=== PATIENT | male | born 1960 | race Caucasian/White ===

== ENCOUNTER 2016-09-15 11:27 | Day surgery (SDC) | payer BC ==
--- NOTE | ~2016-09-15 | EGD ---
EGD REPORT [facility] [address] [address] NAME: KRISTY STALLWORTH : [birth year] STATUS : REG [facility]#: [id number] AGE: 56 ADM/REG DATE : 09/15/16 MR#: [id number] REPORT SERV DATE: 09/15/16 DICTATED BY: ANDREAS MCGRAW DATE: 09/15/16 REPORT STATUS : Draft TRANSCRIBED BY: [facility] DATE: 09/15/16 [facility] Patient Name: Kristy Stallworth Date of : 1960 Attending MD: ANDREAS MCGRAW MD Procedure Date No Time: 09/15/2016 Procedure: Colonoscopy Indications: Screening in patient at increased risk: Colorectal cancer in father before age 60, Personal history of colonic polyps Referring MD: RAMYA COLE MD Medicines: Propofol per Anesthesia Complications: No immediate complications. Estimated blood loss: None. Procedure: Pre-Anesthesia Assessment: - After reviewing the risks and benefits, the patient was deemed in satisfactory condition to undergo the procedure. - Prior to the procedure, a History and Physical was performed, and patient medications and allergies were reviewed. The patient's tolerance of previous anesthesia was also reviewed. The risks and benefits of the procedure and the sedation options and risks were discussed with the patient. All questions were answered, and informed consent was obtained. Prior Anticoagulants: The patient has taken no previous anticoagulant or antiplatelet agents. ASA Grade Assessment: II - A patient with mild systemic disease. After reviewing the risks and benefits, the patient was deemed in satisfactory condition to undergo the procedure. After I obtained informed consent, the scope was passed under direct vision. Throughout the procedure, the patient's blood pressure, pulse, and oxygen saturations were monitored continuously. The CF [id number] was introduced through the anus and advanced to the terminal ileum, with identification of the appendiceal orifice and IC valve. The colonoscopy was performed without difficulty. The ileocecal valve, appendiceal orifice and terminal ileum were photographed. The patient tolerated the procedure well. The quality of the bowel preparation was adequate. The bowel preparation used was split dose polyethylene glycol (PEG). Scope withdrawal time was greater than 10 minutes. Findings: The perianal and digital rectal examinations were normal. Pertinent EGD REPORT [address] [address] NAME: KRISTY STALLWORTH : [birth year] STATUS : [facility] [place] PAT#: [id number] AGE: 56 ADM/REG DATE : 09/15/16 MR#: [id number] REPORT SERV DATE: 09/15/16 DICTATED BY: ANDREAS MCGRAW DATE: 09/15/16 REPORT STATUS : Draft TRANSCRIBED BY: [employer] DATE: 09/15/16 negatives include normal sphincter tone. The terminal ileum appeared normal. Non-bleeding internal hemorrhoids were found during retroflexion and were small and Grade I (internal hemorrhoids that do not prolapse). The exam was otherwise without abnormality. Impression: - Non-bleeding internal hemorrhoids. - The examination was otherwise normal. Recommendation: - Discharge patient to home (ambulatory). - Return to previous diet. - Continue present medications. - Repeat colonoscopy in 5 years for screening purposes and for surveillance. - Patient has a contact number available for emergencies. The signs and symptoms of potential delayed complications were discussed with the patient. Return to normal activities tomorrow. Written discharge instructions were provided to the patient. Procedure Code(s): --- Professional --- G0105, Colorectal cancer screening; colonoscopy on individual at high risk Diagnosis Code(s): --- Professional --- K64.0, First degree hemorrhoids Z12.11, Encounter for screening for malignant neoplasm of colon Z80.0, Family history of malignant neoplasm of digestive organs Z86.010, Personal history of colonic polyps CPT copyright 2013 [employer]. All rights reserved. The codes documented in this report are preliminary and upon executive director sheltered workshop review may be revised to meet current compliance requirements. ANDREAS MCGRAW MD 09/15/2016 1:48 PM This report has been signed electronically. Number of Addenda: 0 Note Initiated On: 09/15/2016 1:24 PM Scope Withdrawal Time 0 hours 10 minutes 5 seconds EGD REPORT [facility] [address] [address] NAME: KRISTY STALLWORTH : 64 STATUS : [facility] [place] PAT#: [id number] AGE: 56 ADM/REG DATE : 09/15/16 MR#: [id number] REPORT SERV DATE: 09/15/16 DICTATED BY: ANDREAS MCGRAW DATE: 09/15/16 REPORT STATUS : Draft TRANSCRIBED BY: [employer] DATE: 09/15/16 [address] [id number]
[~2016-09-15 11:27] MED LIST: COZ25 PO; FARXIGA5 PO; GLUCPH PO; LYRICA75 PO; PRAVACHOL40 MG PO
== END 2016-09-15 23:59 | disposition home or self-care (01) ==
LOC: DMU 11:27
PROVIDERS: Internal Medicine Gastroenterology
PROC: 0DJD8ZZ Inspection of Lower Intestinal Tract, Via Natural or Artificial Opening Endoscopic (ICD-10-PCS; principal; 2016-09-15 13:00)
DX: Z12.11 Encounter for screening for malignant neoplasm of colon (principal); K64.0 First degree hemorrhoids; Z80.0 Family history of malignant neoplasm of digestive organs; Z86.010 Personal history of colon polyps; I10 Essential (primary) hypertension; E11.9 Type 2 diabetes mellitus without complications; G57.93 Unspecified mononeuropathy of bilateral lower limbs
CPT/HCPCS: 82962